=== PATIENT | female | born 1980 | race Two or more races ===

== ENCOUNTER 2017-11-30 19:55 | Emergency (ER) | payer OTHER ==
[~2017-11-30] VITALS: Ht 165.1 cm; Wt 73.8 kg
[2017-11-30 19:56] VITALS: BP 124/77
[2017-11-30] MEDS ORDERED: HYDROcodone/APAP 5/325 TABLET ONE (20:19)
[2017-11-30] MEDS ORDERED: HYDROcodone/APAP 5/325 TABLET PO ONE (20:30)
== END 2017-11-30 20:46 | disposition home or self-care (01) ==
LOC: ED 20:15
DX: K02.9 Dental caries, unspecified (principal); K04.7 Periapical abscess without sinus
CPT/HCPCS: 99283